=== PATIENT | female | born 1985 | race African-American/Black ===

== ENCOUNTER 2018-03-01 15:00 | Inpatient (IN) | payer OTHER ==
[2018-03-01] MEDS ORDERED: DINOPROSTONE 10 MG VAGINAL SUPPOSITORY VG ONE (15:45)
--- NOTE | 2018-03-01 15:53 | PN ---
Progress Note (short form) - Note Progress Note: cx 2 cm 50 vx -3 mi, fhr cat 1, cervidil rba discussed , cervidil inserted
[2018-03-01 17:06] VITALS: BMI 42.7
[2018-03-01 17:23] LABS: BASO % 0.5 % (0-2.0); EOS % 0.2 % (0-4.5); HEMATOCRIT 36.1 % (32.4-45.2); HEMOGLOBIN 11.8 GM/dL (10.7-15.3); LYMPH % 32.2 % (8-40); MCH 26.6 pg (25.7-33.7); MCHC 32.7 g/dl (32.0-36.0); MEAN CELL VOLUME 81.3 fl (80-96); MEAN PLT VOLUME 10.1 fl (7.5-11.1); MONO % 7.1 % (3.8-10.2); PLATELET COUNT 130 K/MM3 (134-434); RBC 4.44 M/mm3 (3.60-5.2); RDW 17.9 % (11.6-15.6); WHITE BLOOD COUNT 5.3 K/mm3 (4.0-10.0)
[2018-03-01 17:43] LABS: ALBUMIN 2.7 g/dl (3.4-5.0); ALK PHOS 212 U/L (45-117); ANION GAP 8 (8-16); BILIRUBIN,TOTAL 0.1 mg/dL (0.2-1.0); BLOOD UREA NITROGEN 10 mg/dL (7-18); CHLORIDE 111 mmol/L (98-107); CO2 22 mmol/L (21-32); CREATININE 0.5 mg/dL (0.55-1.02); GLUCOSE,RANDOM 86 mg/dL (74-106); POTASSIUM 4.4 mmol/L (3.5-5.1); SGOT/AST 15 U/L (15-37); SGPT/ALT 20 U/L (12-78); SODIUM 141 mmol/L (136-145); TOT PROT 6.5 g/dl (6.4-8.2)
[2018-03-01] MEDS ORDERED: LACTATED RINGERS SOLUTION 500 ML IV ONE (17:45)
[2018-03-01 18:02] LABS: INR 0.91 (0.82-1.09); PROTHROMBIN TIME (PATIENT) 10.3 SEC (9.98-11.88)
[2018-03-01 18:05] LABS: ACTIVATED PTT 26.9 SECONDS (26.9-34.4)
[2018-03-01] MEDS ORDERED: LACTATED RINGERS SOLUTION 1,000 ML IV SCH (18:45)
--- NOTE | 2018-03-01 19:09 | HP ---
Past Medical History - Primary Care Physician PCP:: Byron Gloria - Admission Chief Complaint: 39.4 weeks, GDM,obesity, admitted for induction of labor History of Present Illness: 32 yo f 39.4 weeks with hx of GDM on metformin , admitted for cervidil induction, rba discussed , cx 2 cm, 50 vx -3 mi, fhr cat 1 , occasional contraction, rba to cervidil discussed Limitations to Obtaining History: No Limitations - Past Medical History ...: 4 ...Para: 3 ...Term: 3 ...: 0 ...Spon : 0 ...Induced : 0 ...Multiple Gestation: 0 ...LMP: 05/28/17 ... Weeks Gestation by Dates: 39.4 ...EDC by Dates: 03/04/18 ...EDC by Sono: 03/04/18 Endocrine: Yes: Diabetes Mellitus - Past Surgical History Past Surgical History: Yes: None Hx Myomectomy: No Hx Transabdominal Cerclage: No - Smoking History Smoking history: Never smoked Have you smoked in the past 12 months: No - Alcohol/Substance Use Hx Alcohol Use: No History of Substance Use: reports: None - Social History History of Recent Travel: No Home Medications - Allergies Allergies/Adverse Reactions: Allergies Allergy/AdvReac Type Severity Reaction Status Date / Time No Known Allergies Allergy Verified 03/01/18 16:00 - Home Medications Home Medications: Ambulatory Orders Vitamins (Sjr) - 1 tab PO DAILY 12/14/14 Metformin HCl 500 mg PO BID 03/01/18 Review of Systems - Review of Systems Constitutional: reports: No Symptoms Eyes: reports: No Symptoms HENT: reports: No Symptoms Neck: reports: No Symptoms Cardiovascular: reports: No Symptoms Respiratory: reports: No Symptoms Gastrointestinal: reports: No Symptoms Genitourinary: reports: No Symptoms Breasts: reports: No Symptoms Reported Musculoskeletal: reports: No Symptoms Integumentary: reports: No Symptoms Neurological: reports: No Symptoms Endocrine: reports: No Symptoms Hematology/Lymphatic: reports: No Symptoms Psychiatric: reports: No Symptoms Physical Exam - Maternity Vital Signs: Vital Signs Temperature 98.7 F 03/01/18 18:00 Pulse Rate 85 03/01/18 18:00 Respiratory Rate 20 03/01/18 18:00 Blood Pressure 93/68 03/01/18 18:00 O2 Sat by Pulse Oximetry (%) Constitutional: Yes: Well Nourished, No Distress, Calm, Obese Eyes: Yes: WNL, Conjunctiva Clear, EOM Intact HENT: Yes: WNL, Atraumatic, Normocephalic Neck: Yes: WNL, Supple, Trachea Midline Cardiovascular: Yes: WNL, Regular Rate and Rhythm Breast(s): Yes: WNL - Abdominal Exam/OB Fundal Height: 40 Number of Fetuses: Single Presentation: Vertex Contractions: Yes Regularity: Irritability Intensity: Unaware Monitor Mode: External Heart Rate Location: [facility] Category: I Accelerations: Non-Uniform Decelerations: None - Vaginal Exam/OB Vaginal Bleediing: No Speculum Exam: No Dilatation (cm): 2 cm Effacement (%): 50 Amniotic Membrane Status: Intact Presentation: Vertex/Position Station: -3 - Physical Exam Musculoskeletal: Yes: WNL Extremities: Yes: WNL Edema: Yes Edema: LLE: 1+, RLE: 1+ Deep Tendon Reflex Grade: Normal +2 Psychiatric: Yes: WNL - Labs Lab Results: CBC, BMP 03/01/18 17:00 03/01/18 17:00 Hemorrhage Risk Assessment - Risk Factors Medium Risk Factors: Yes: None High Risk Factors: Yes: None Risk Score: 1 Risk Level: Medium Risk Problem List - Problems (1) with 39 completed weeks gestation Code(s): Z3A.39 - 39 WEEKS GESTATION OF (2) Gestational diabetes Code(s): O24.419 - GESTATIONAL DIABETES MELLITUS IN , UNSP CONTROL Qualifiers: Gestational diabetes mellitus control: oral hypoglycemic-controlled Trimester: third trimester Qualified Code(s): O24.415 - Gestational diabetes mellitus in , controlled by oral hypoglycemic drugs (3) Obesity Code(s): E66.9 - OBESITY, UNSPECIFIED Assessment/Plan admit, fhm, cervidil rba discussed
[2018-03-01] MEDS ORDERED: BUTORPHANOL TARTRATE 1 MG/ML VIAL IVPUSH ONE (19:30)
[2018-03-01] MEDS ORDERED: PROMETHAZINE HCL 25 MG/1 ML VIAL IVPB ONE (19:30)
[2018-03-01] MEDS ORDERED: BUTORPHANOL TARTRATE 1 MG/ML VIAL ONE ×2 (23:20)
[2018-03-01] MEDS ORDERED: PROMETHAZINE HCL 25 MG/1 ML VIAL ONE (23:20)
[2018-03-02] MEDS ORDERED: LIDOCAINE HCL 1% PRESERVATIVE FREE - 30ML VIAL ONE (01:50)
[2018-03-02] MEDS ORDERED: OXYTOCIN 20 UNITS in 0.9% NS 20 UNIT/1,000 ML INFUS.BAG IV ONE (01:51)
[2018-03-02] MEDS ORDERED: BISACODYL 10 MG SUPP.RECT RC PRN (02:18)
[2018-03-02] MEDS ORDERED: WITCH HAZEL 50% (TUCKS) 40 PAD/JAR PAD TP PRN (02:18)
[2018-03-02] MEDS ORDERED: BENZOCAINE 20% 57 GM BOTTLE TP PRN (02:18)
[2018-03-02] MEDS ORDERED: METHYLERGONOVINE MALEATE 0.2 MG/1 ML AMP IM PRN (02:18)
[2018-03-02] MEDS ORDERED: BENZOCAINE 28 GM HEMORRHOIDAL OINTMENT TP PRN (02:18)
[2018-03-02] MEDS ORDERED: oxyCODONE HCL 5 MG TABLET PO PRN (02:18)
--- NOTE | 2018-03-02 02:26 | PN ---
Progress Note (short form) - Note Progress Note: 03/01/18 , 1030 pm cx 3 cm, 70 vx -2 srom , clear cervidil fell out fhr cat1, regular contraction Problem List - Problems (1) with 39 completed weeks gestation Code(s): Z3A.39 - 39 WEEKS GESTATION OF (2) Gestational diabetes Code(s): O24.419 - GESTATIONAL DIABETES MELLITUS IN , UNSP CONTROL Qualifiers: Gestational diabetes mellitus control: oral hypoglycemic-controlled Trimester: third trimester Qualified Code(s): O24.415 - Gestational diabetes mellitus in , controlled by oral hypoglycemic drugs (3) Obesity Code(s): E66.9 - OBESITY, UNSPECIFIED
[2018-03-02] MEDS ORDERED: D5W-LR W/ 20 UNITS OXYTOCIN 20 UNIT/1,000 ML INFUS.BAG IV SCH (02:30)
[2018-03-02 02:35] LABS: ARTERIAL BLD GAS O2 SATURATION 13.6 % (90-98.9); ARTERIAL BLOOD GAS PO2 14.1 mmHg (80-100); ARTERIAL BLOOD GAS pH 7.06 (7.35-7.45)
[2018-03-02 02:36] LABS: ARTERIAL BLOOD GAS BASE EXCESS -13.1 meq/l (-2-2)
[2018-03-02 02:36] LABS: VENOUS PH 7.28 (7.32-7.42)
[2018-03-02 02:37] LABS: VENOUS PO2 25.2 mmHg (28-48)
--- NOTE | 2018-03-02 02:37 | PN ---
Delivery - Delivery Vaginal Delivery: Spontaneous Episiotomy/Laceration: 1st degree (cx fully dilated , head on periniumm, patient was pushing, in dorsal lithotomy position . head delivered , nasopharynx suctioned, ALINE position , ant shoulder difficult to deliver, MCrobert Manuewer done, advised patient not to push, suprapubic pressure applied , ant. shoulder released and delivered , post shoulder deliverd , live baby boy, 6/8, placenta complete ,spont, EBL 300 cc , 1 cm perinial skin closed with one suture of 2 0 chromic) Delivery, Single - [place] Feeding Plan Initial Plan: Elected not to breastfeed exclusively throughout hospitalization
[2018-03-02] MEDS: IBUPROFEN 600 MG TABLET (FP) PO PRN ×3 (04:18→16:15)
[2018-03-02] MEDS: ACETAMINOPHEN 325 MG TABLET (FP) PO PRN ×3 (04:18→16:16)
[2018-03-02] MEDS: metFORMIN HCL 500 MG TABLET (FP) PO SCH ×2 (07:10→16:15)
[2018-03-02] MEDS: FERROUS SO4 325 MG TABLET (FP) PO SCH ×2 (07:10→18:58)
[2018-03-02] MEDS: PRENATAL VITAMINS W/ FOLIC ACID TABLET (FP) PO SCH (09:59)
[2018-03-02] MEDS ORDERED: DIPHTH,PERTUSS(ACELL),TET 0.5 ML DISP.SYRIN IM ONE (10:00)
[2018-03-02] MEDS ORDERED: FLU VACC QS2017-18 36MOS UP/PF 60 MCG/0.5 ML SYRINGE IM ONE (10:00)
[2018-03-02 14:50] LABS: RPR REACTIVE 1:1 (NONREACTIVE)
[2018-03-02 14:57] LABS: TREPONEMA ANTIBODY PREVIOUSLY REACTIVE (NONREACTIVE)
[2018-03-03] MEDS: ACETAMINOPHEN 325 MG TABLET (FP) PO PRN ×2 (06:08→21:09)
[2018-03-03] MEDS: IBUPROFEN 600 MG TABLET (FP) PO PRN ×2 (06:09→21:09)
--- NOTE | 2018-03-03 07:55 | PN ---
Post Progress Note - Subjective Subjective: 32 yo Para 2 status post vaginal delivery, seen and evaluated. No complaints. Post Day: 1 Type of Delivery: Vital Signs: Vital Signs Temperature 98.0 F 03/03/18 06:00 Pulse Rate 84 03/03/18 06:00 Respiratory Rate 20 03/03/18 06:00 Blood Pressure 135/73 03/03/18 06:00 O2 Sat by Pulse Oximetry (%) Breast Exam: Yes: Soft Uterus: Yes: Fundus Firm Abdomen/GI: Yes: Abdomen soft, Tolerating PO Lochia: Yes: Rubra Lochia, amount: Moderate Extremities: Yes: Calves non-tender Perineum: Yes: Intact Activity: Ambulating - Labs Labs: CBC WBC 5.3 K/mm3 (4.0-10.0) 03/01/18 17:00 RBC 4.44 M/mm3 (3.60-5.2) 03/01/18 17:00 Hgb 11.8 GM/dL (10.7-15.3) 03/01/18 17:00 Hct 36.1 % (32.4-45.2) 03/01/18 17:00 MCV 81.3 fl (80-96) 03/01/18 17:00 MCH 26.6 pg (25.7-33.7) 03/01/18 17:00 MCHC 32.7 g/dl (32.0-36.0) 03/01/18 17:00 RDW 17.9 % (11.6-15.6) H 03/01/18 17:00 Plt Count 130 K/MM3 (134-434) L 03/01/18 17:00 MPV 10.1 fl (7.5-11.1) D 03/01/18 17:00 Neutrophils % 60.0 % (42.8-82.8) 03/01/18 17:00 Lymphocytes % 32.2 % (8-40) 03/01/18 17:00 Monocytes % 7.1 % (3.8-10.2) 03/01/18 17:00 Eosinophils % 0.2 % (0-4.5) 03/01/18 17:00 Basophils % 0.5 % (0-2.0) D 03/01/18 17:00 Assessment/Plan Status post vaginal delivery Stable Continue routine care
[2018-03-03 08:16] LABS: BASO % 0.2 % (0-2.0); EOS % 0.1 % (0-4.5); HEMATOCRIT 35.5 % (32.4-45.2); HEMOGLOBIN 11.3 GM/dL (10.7-15.3); LYMPH % 41.8 % (8-40); MCHC 31.9 g/dl (32.0-36.0); MEAN CELL VOLUME 81.5 fl (80-96); MEAN PLT VOLUME 9.9 fl (7.5-11.1); MONO % 6.1 % (3.8-10.2); NEUT % 51.8 % (42.8-82.8); PLATELET COUNT 133 K/MM3 (134-434); RBC 4.35 M/mm3 (3.60-5.2); RDW 18.3 % (11.6-15.6); WHITE BLOOD COUNT 7.4 K/mm3 (4.0-10.0)
[2018-03-03] MEDS: metFORMIN HCL 500 MG TABLET (FP) PO SCH ×2 (08:30→16:58)
[2018-03-03] MEDS: FERROUS SO4 325 MG TABLET (FP) PO SCH ×2 (08:30→16:58)
[2018-03-03] MEDS: PRENATAL VITAMINS W/ FOLIC ACID TABLET (FP) PO SCH (10:42)
[2018-03-03] MEDS ORDERED: SENNOSIDES/DOCUSATE COMBO (SENNA PLUS) TABLET (UD) PO PRN (22:00)
[2018-03-04] MEDS: metFORMIN HCL 500 MG TABLET (FP) PO SCH (06:38)
--- NOTE | 2018-03-04 07:38 | DS ---
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: Vital Signs Temperature 97.6 F 03/03/18 21:00 Pulse Rate 97 H 03/03/18 21:00 Respiratory Rate 20 03/03/18 21:00 Blood Pressure 124/82 03/03/18 21:00 O2 Sat by Pulse Oximetry (%) Constitutional: Yes: Well Nourished Eyes: Yes: Conjunctiva Clear HENT: Yes: Atraumatic Neck: Yes: Supple Cardiovascular: Yes: Regular Rate and Rhythm Respiratory: Yes: Regular Gastrointestinal: Yes: Normal Bowel Sounds External Genitalia: Yes: Normal Vaginal Exam: Yes: Normal Cervix: Yes: Normal Uterus: Yes: Firm ....Post : Yes: Uterus firm, Moderate lochia serosa Breast(s): Yes: WNL Musculoskeletal: Yes: WNL Extremities: Yes: WNL Neurological: Yes: Alert, Oriented ...Motor Strength: WNL Psychiatric: Yes: Alert, Oriented Labs: CBC, BMP 03/03/18 07:22 03/01/18 17:00 Delivery - Delivery Vaginal Delivery: Spontaneous Type of Anesthesia: None Episiotomy/Laceration: 1st degree (cx fully dilated , head on periniumm, patient was pushing, in dorsal lithotomy position . head delivered , nasopharynx suctioned, ALINE position , ant shoulder difficult to deliver, MCrobert Manuewer done, advised patient not to push, suprapubic pressure applied , ant. 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 Present: No Infant Gender: Male Weight: 10 lb 2 oz Position: Right, OA Total Hours ROM (Hrs/Mins): [id number] - 1 Minute Total Score: 6 5 Minutes Total Score: 8 - [place] Feeding Plan Initial Plan: Elected not to breastfeed exclusively throughout hospitalization Discharge Summary Reason For Visit: INDUCTION OF LABOR Current Active Problems Gestational diabetes (Acute) Obesity (Acute) with 39 completed weeks gestation (Acute) Procedures: Principal: Normal spontaneous vaginal delivery Hospital Course: Routine care Condition: Good - Instructions Diet, Activity, Other Instructions: Regular diet No douching, no sexual intercourse x 6 weeks. F/U in clinic in 6 weeks Disposition: HOME - Home Medications Comprehensive Discharge Medication List: Ambulatory Orders Vitamins (Sjr) - 1 tab PO DAILY 12/14/14 Metformin HCl 500 mg PO BID 03/01/18
[2018-03-04] MEDS: FERROUS SO4 325 MG TABLET (FP) PO SCH (07:59)
[2018-03-04 10:35] VITALS: BP 120/72; PULSE 88; TEMP 98.2
[2018-03-04] MEDS: PRENATAL VITAMINS W/ FOLIC ACID TABLET (FP) PO SCH (11:35)
== END 2018-03-04 12:03 | disposition home or self-care (01) | DRG 560 ==
LOC: JLDR 15:00 → J3W 03-02 03:51
PROVIDERS: ADMIT Obstetrics & Gynecology; ATTEND Obstetrics & Gynecology
PROC: 3E0P7VZ Introduction of Hormone into Female Reproductive, Via Natural or Artificial Opening (ICD-10-PCS; 2018-03-01)
PROC: 10E0XZZ Delivery of Products of Conception, External Approach (ICD-10-PCS; principal; 2018-03-02)
PROC: 0HQ9XZZ Repair Perineum Skin, External Approach (ICD-10-PCS; 2018-03-02)
DX: O24.415 Gestational diabetes mellitus in pregnancy, controlled by oral hypoglycemic drugs (principal); O99.214 Obesity complicating childbirth; E66.8 Other obesity; Z68.41 Body mass index [BMI] 40.0-44.9, adult; O70.0 First degree perineal laceration during delivery; Z3A.39 39 weeks gestation of pregnancy; Z37.0 Single live birth
CPT/HCPCS: 36415; 36600; 59409; 80053; 82803; 82962; 85025; 85610; 85730; 86593; 86780; 86850; 86900; 86901; 90686; 90715; G0008

== ENCOUNTER → 2024-03-20 | Day surgery (SDC) | payer OTHER | END | disposition home or self-care (01) | LOC: JRADUS-SUR 09:47 | PROVIDERS: ATTEND Family Medicine | PROC: 0HBT3ZX Excision of Right Breast, Percutaneous Approach, Diagnostic (ICD-10-PCS; principal; 2024-03-20) | DX: D24.1 Benign neoplasm of right breast (principal) | CPT/HCPCS: 19083; 77065-TC; 87899; 88305-TC; A4648 ==

== ENCOUNTER 2024-05-03 17:32 | Emergency (ER) | payer OTHER ==
[2024-05-03 17:46] VITALS: BP 115/62; PULSE 95; RESP 18; TEMP 98.5; BMI 42.5
[2024-05-03 18:21] LABS: EOS % 2.1 % (0-4.5); HEMATOCRIT 34.9 % (32.4-45.2); HEMOGLOBIN 10.6 GM/dL (10.7-15.3); LYMPH % 39.3 % (8-40); MCH 20.5 pg (25.7-33.7); MCHC 30.4 g/dl (32.0-36.0); MEAN CELL VOLUME 67.5 fl (80-96); MEAN PLT VOLUME 8.7 fl (7.5-11.1); MONO % 6.7 % (3.8-10.2); NEUT % 50.9 % (42.8-82.8); PLATELET COUNT 271 10^3/uL (134-434); RBC 5.17 M/mm3 (3.60-5.2); RDW 29.1 % (11.6-15.6); WHITE BLOOD COUNT 7.2 K/mm3 (4.0-10.0)
[2024-05-03 18:40] LABS: EPI CELLS 12 /uL (0-25.1); HYALINE CASTS 0 /uL (0-3.1); URINE APPEARANCE CLEAR; URINE BACTERIA 94 /uL (0-1359); URINE BILIRUBIN NEGATIVE (NEGATIVE); URINE COLOR YELLOW; URINE GLUCOSE (UA) 2+ (NEGATIVE); URINE KETONE TRACE (NEGATIVE); URINE LEUK ESTERASE NEGATIVE (NEGATIVE); URINE NITRITE NEGATIVE (NEGATIVE); URINE PROTEIN NEGATIVE (NEGATIVE); URINE RBC 6 /uL (0-23.9); URINE WBC 3 /uL (0-25.8)
[2024-05-03 18:41] LABS: POTASSIUM 3.9 mmol/L (3.5-5.1)
[2024-05-03 18:43] LABS: CALCIUM 9.7 mg/dL (8.5-10.1)
[2024-05-03 18:44] LABS: ALBUMIN 3.3 g/dl (3.4-5.0); BLOOD UREA NITROGEN 8.2 mg/dL (7-18)
[2024-05-03 18:46] LABS: CREATININE 0.7 mg/dL (0.55-1.3)
[2024-05-03 18:48] LABS: BILIRUBIN,TOTAL 0.2 mg/dL (0.2-1); TOT PROT 7.4 g/dl (6.4-8.2)
[2024-05-03 20:06] LABS: HCG,QUALITATIVE URINE POSITIVE
[2024-05-03] MEDS ORDERED: ACETAMINOPHEN INJECTION 100 ML IVPB ONE (20:29)
[2024-05-03] MEDS: SODIUM CHLORIDE 0.9% 500 ML INFUS.BAG IV ONE (20:42)
[2024-05-03] MEDS: ACETAMINOPHEN 1000 MG/100 ML BAG IVPB ONE (20:42)
[2024-05-03 21:58] LABS: ANISOCYTOSIS 3+; MACROCYTOSIS 1+; OVALOCYTE 1+
[2024-05-03 22:00] LABS: PLATELET ESTIMATE ADEQUATE
== END 2024-05-03 22:03 | disposition home or self-care (01) ==
LOC: JER 17:32
PROC: 3E033NZ Introduction of Analgesics, Hypnotics, Sedatives into Peripheral Vein, Percutaneous Approach (ICD-10-PCS; principal; 2024-05-03)
DX: O20.0 Threatened abortion (principal); O26.891 Other specified pregnancy related conditions, first trimester; R10.2 Pelvic and perineal pain; Z3A.12 12 weeks gestation of pregnancy
CPT/HCPCS: 36415; 76817-TC; 80053; 81003; 84702; 84703; 85025; 86850; 86900; 86901; 87086; 99284-25; J0131